=== PATIENT | female | born 1955 | race Two or more races ===

== ENCOUNTER 2018-09-22 06:18 | Inpatient (IN) | payer OTHER ==
[~2018-09-22] VITALS: Ht 162.6 cm; Wt 58.1 kg
== END 2018-09-27 18:45 | disposition home or self-care (01) | DRG 435 ==
LOC: ER 06:18 → MEDJ 21:40 → SEC-K 21:40 → MEDJ 09-23 03:02
PROVIDERS: ADMIT Internal Medicine
PROC: BW21Y0Z Computerized Tomography (CT Scan) of Abdomen and Pelvis using Other Contrast, Unenhanced and Enhanced (ICD-10-PCS; 2018-09-22)
PROC: BF37ZZZ Magnetic Resonance Imaging (MRI) of Pancreas (ICD-10-PCS; 2018-09-22)
PROC: 0FBG3ZX Excision of Pancreas, Percutaneous Approach, Diagnostic (ICD-10-PCS; principal; 2018-09-23)
DX: C25.7 Malignant neoplasm of other parts of pancreas (principal); K85.90 Acute pancreatitis without necrosis or infection, unspecified; K86.2 Cyst of pancreas; E87.6 Hypokalemia; R74.8 Abnormal levels of other serum enzymes; N28.1 Cyst of kidney, acquired; R19.7 Diarrhea, unspecified; E86.0 Dehydration; E83.42 Hypomagnesemia; E83.39 Other disorders of phosphorus metabolism; K86.81 Exocrine pancreatic insufficiency

== ENCOUNTER → 2018-11-24 | Outpatient (CLI) | payer OTHER | END | disposition home or self-care (01) | LOC: NUCLEAR 08:30 | DX: C25.9 Malignant neoplasm of pancreas, unspecified (principal); Z85.038 Personal history of other malignant neoplasm of large intestine; Z85.42 Personal history of malignant neoplasm of other parts of uterus | CPT/HCPCS: 78816; A9552 ==